=== PATIENT | female | born 1930 | race Hispanic/Latino ===

== ENCOUNTER 2016-11-15 17:59 | Emergency (ER) | payer MEDICARE ==
[2016-11-15 23:23] LABS: Basophils % (Auto) 0.5 % (0.0-1.8); Eosinophils % (Auto) 0.4 % (0.0-4.3); Hematocrit 35.1 % (30.3-42.9); Hemoglobin 11.9 gm/dl (10.1-14.3); Mean Corpuscular HGB Conc 34 % (30-34); Mean Corpuscular Hemoglobin 33 pg (28-32); Mean Corpuscular Volume 96 fl (79-97); Platelet Count 229 K/mm3 (140-440); Red Blood Count 3.66 M/mm3 (3.65-5.03); Red Cell Distribution Width 13.6 % (13.2-15.2); White Blood Count 8.4 K/mm3 (4.5-11.0)
[2016-11-15 23:36] LABS: INR 4.3 (0.87-1.13)
[2016-11-15 23:37] LABS: Alanine Aminotransferase 13 units/L (7-56); Albumin 2.6 g/dL (3.9-5); Albumin/Globulin Ratio 0.8 %; Alkaline Phosphatase 61 units/L (35-129); Bilirubin,Total 0.6 mg/dL (0.1-1.2); Blood Urea Nitrogen 20 mg/dL (7-17); Calcium 8.5 mg/dL (8.4-10.2); Carbon Dioxide 26 mmol/L (22-30); Chloride 103.1 mmol/L (98-107); Glucose 146 mg/dL (65-100); Potassium 4.6 mmol/L (3.6-5.0); Sodium 140 mmol/L (137-145); Total Protein 5.8 g/dL (6.3-8.2)
[2016-11-15 23:41] LABS: Anion Gap 16 mmol/L; Bilirubin,Direct < 0.2 mg/dL (0-0.2); Bilirubin,Indirect 0.4 mg/dL
[2016-11-15 23:48] LABS: Partial Thromboplastin Time 65.8 Sec. (24.2-36.6)
[2016-11-15 23:53] LABS: Bacteria,Urine 4+ /HPF (Negative); Bilirubin,Urine NEG (Negative); Blood,Urine LG (Negative); Ketones,Urine NEG (Negative); Leukocyte Esterase,Urine LG (Negative); Mucus,Urine FEW /HPF; Nitrite,Urine NEG (Negative); Urobilinogen,Urine < 2.0 mg/dL (<2.0)
[2016-11-15 23:54] LABS: RBC,Urine > 182.0 /HPF (0.0-6.0); WBC,Urine > 182.0 /HPF (0.0-6.0)
--- NOTE | 2016-11-16 00:15 | Emergency Department Report ---
ED General Adult HPI - General Chief complaint: Abdominal Pain Stated complaint: BLOOD IN URINE Time Seen by Provider: 11/15/16 22:41 Source: EMS, RN notes reviewed Mode of arrival: Stretcher Limitations: Altered Mental Status, Other - History of Present Illness Initial comments: The patient was sent from the [facility] for evaluation of hematuria. Apparently there were some signs of suprapubic discomfort. At this point the patient is really not communicating with me. Her CODE STATUS is DO NOT RESUSCITATE. Apparently she is total care in the senior living. They did not identify any other specific problem. She has not had a fever. She is on chronic anticoagulation for atrial fibrillation. However, at this time she appears to be in a regular rhythm at 78. In any case there is been no signs of vomiting or respiratory distress or any other specific symptoms. -: hour(s) Location: abdomen (suprapubic area per report) Severity scale (0 -10): 0 Improves with: none Worsens with: other (on oral anticoagulant) Associated Symptoms: other (hematuria) - Related Data Previous Rx's Medication Instructions Recorded Last Taken Type Cefuroxime [Ceftin] 250 mg PO Q12H #14 tablet 11/16/16 Unknown Rx Allergies Allergy/AdvReac Type Severity Reaction Status Date / Time No Known Allergies Allergy Unverified 11/16/16 00:33 ED Review of Systems ROS: Stated complaint: BLOOD IN URINE Other details as noted in HPI Comment: Unobtainable due to pts medical conditions ED Past Medical Hx - Past Medical History Previous Medical History?: Yes Hx Hypertension: Yes Hx Diabetes: Yes Hx Arthritis: Yes Hx Dementia: Yes Additional medical history: A-fib,. PE - Surgical History Past Surgical History?: No - Social History Smoking Status: Unknown if ever smoked Substance Use Type: None - Medications Home Medications: Home Medications Medication Instructions Recorded Confirmed Last Taken Type Cefuroxime [Ceftin] 250 mg PO Q12H #14 tablet 11/16/16 Unknown Rx ED Physical Exam - General Limitations: Altered Mental Status General appearance: alert, in no apparent distress - Head Head exam: Present: atraumatic, normocephalic - Eye Eye exam: Present: normal appearance. Absent: scleral icterus - ENT ENT exam: Present: mucous membranes moist - Neck Neck exam: Present: normal inspection - Respiratory Respiratory exam: Present: normal lung sounds bilaterally. Absent: respiratory distress - Cardiovascular Cardiovascular Exam: Present: regular rate, normal rhythm. Absent: systolic murmur, diastolic murmur, rubs, gallop - GI/Abdominal GI/Abdominal exam: Present: soft, normal bowel sounds. Absent: distended, tenderness, guarding, rebound, rigid, organomegaly, mass - Extremities Exam Extremities exam: Present: normal inspection - Back Exam Back exam: Present: normal inspection - Neurological Exam Neurological exam: Present: other (no apparent acute focal deficit). Absent: alert (reasonably responsive to stimuli) - Psychiatric Psychiatric exam: Present: flat affect - Skin Skin exam: Present: warm, dry, intact, normal color. Absent: rash ED Course Vital Signs 11/15/16 11/15/16 21:56 22:05 Temperature 98.0 F Pulse Rate 73 68 Respiratory 18 18 Rate Blood Pressure 158/70 Blood Pressure 158/70 158/76 [Left] O2 Sat by Pulse 97 97 Oximetry - Reevaluation(s) Reevaluation #1: The patient was found to be Coumadin toxic. I do not see the benefit of hospitalization at this point with an INR 4.3. This could be managed appropriately at the senior living. She is started on ceftriaxone. Cultures pending. 11/16/16 00:25 ED Medical Decision Making - Lab Data Result diagrams: 11/15/16 23:09 11/15/16 23:09 Laboratory Results - last 24 hr 11/15/16 11/15/16 11/15/16 23:09 23:09 23:09 WBC 8.4 RBC 3.66 Hgb 11.9 Hct 35.1 MCV 96 MCH 33 H MCHC 34 RDW 13.6 Plt Count 229 Lymph % (Auto) 19.4 [place] % (Auto) 4.9 Eos % (Auto) 0.4 Baso % (Auto) 0.5 Lymph # 1.6 [place] # 0.4 Eos # 0.0 Baso # 0.0 Seg Neutrophils % 74.8 H Seg Neutrophils # 6.3 PT 41.7 H INR 4.30 H APTT 65.8 H* Sodium 140 Potassium 4.6 Chloride 103.1 Carbon Dioxide 26 Anion Gap 16 BUN 20 H Creatinine 1.0 Estimated GFR 53 BUN/Creatinine Ratio 20.00 Glucose 146 H Calcium 8.5 Total Bilirubin 0.6 Direct Bilirubin < 0.2 Indirect Bilirubin 0.4 AST 20 ALT 13 Alkaline Phosphatase 61 Total Protein 5.8 L Albumin 2.6 L Albumin/Globulin Ratio 0.8 Urine Color Urine Turbidity Urine pH Ur Specific [place] Urine Protein Urine Glucose (UA) Urine Ketones Urine Blood Urine Nitrite Urine Bilirubin Urine Urobilinogen Ur Leukocyte Esterase Urine WBC (Auto) Urine RBC (Auto) Urine Bacteria (Auto) Urine WBC Clumps Amorphous Crystals Urine Mucus 11/15/16 23:28 WBC RBC Hgb Hct MCV MCH MCHC RDW Plt Count Lymph % (Auto) [place] % (Auto) Eos % (Auto) Baso % (Auto) Lymph # [place] # Eos # Baso # Seg Neutrophils % Seg Neutrophils # PT INR APTT Sodium Potassium Chloride Carbon Dioxide Anion Gap BUN Creatinine Estimated GFR BUN/Creatinine Ratio Glucose Calcium Total Bilirubin Direct Bilirubin Indirect Bilirubin AST ALT Alkaline Phosphatase Total Protein Albumin Albumin/Globulin Ratio Urine Color Red Urine Turbidity Turbid Urine pH 6.0 Ur Specific [place] 1.010 Urine Protein 100 mg/dl Urine Glucose (UA) Neg Urine Ketones Neg Urine Blood Lg Urine Nitrite Neg Urine Bilirubin Neg Urine Urobilinogen < 2.0 Ur Leukocyte Esterase Lg Urine WBC (Auto) > 182.0 H Urine RBC (Auto) > 182.0 Urine Bacteria (Auto) 4+ Urine WBC Clumps 3+ Amorphous Crystals Few Urine Mucus Few Critical care attestation.: If time is entered above; I have spent that time in minutes in the direct care of this critically ill patient, excluding procedure time. ED Disposition Clinical Impression: Acute cystitis with hematuria Coumadin toxicity Qualifiers: Encounter type: initial encounter Injury intent: accidental or unintentional Qualified Code(s): T45.511A - Poisoning by anticoagulants, accidental ( unintentional), initial encounter Disposition: DISCHARGED TO HOME OR SELFCARE Is pt being admited?: No Does the pt Need Aspirin: No Condition: Stable Instructions: Abdominal Pain (ED), Urinary Tract Infection in Women (ED) Additional Instructions: Hold Coumadin next 2 days. Repeat INR. Antibiotic as directed. Avoid aspirin and arthritis medicine. Follow-up on urine culture. Coordinate care with the patient's primary care provider closely. Prescriptions: Cefuroxime [Ceftin] 250 mg PO Q12H #14 tablet Time of Disposition: 00:36
[2016-11-16] MEDS ORDERED: ROCEPHIN/NS 1 GM/50 ML 50 ML IV ONE (00:16)
[2016-11-16 02:10] VITALS: BP 130/70
== END 2016-11-16 03:13 | disposition home or self-care (01) ==
LOC: ED 17:59
DX: T45.511A Poisoning by anticoagulants, accidental (unintentional), initial encounter (principal); N30.01 Acute cystitis with hematuria; I10 Essential (primary) hypertension; E11.9 Type 2 diabetes mellitus without complications; F03.90 Unspecified dementia, unspecified severity, without behavioral disturbance, psychotic disturbance, mood disturbance, and anxiety
CPT/HCPCS: 36415; 80048; 80074; 81001; 85025; 85610; 85730; 87086; 96365; 99284; J0696